=== PATIENT | male | born 1995 | race American Indian/Alaskan Native ===

== ENCOUNTER 2021-05-25 14:50 | Emergency (ER) | payer SELFPAY ==
[2021-05-25] MEDS ORDERED: LIDOCAINE-MPF (1%) 10 MG/1 ML VIAL 5 ML INFILTRATI ONE (15:48)
--- NOTE | 2021-05-25 15:49 | Emergency Department Report ---
ED Male HPI - General Chief complaint: Urogenital-Male Stated complaint: DISCHARGE Time Seen by Provider: 05/25/21 15:33 Source: patient Mode of arrival: Ambulatory Limitations: No Limitations - History of Present Illness Initial comments: 26-year-old male presents to the ER today with complaints of penile discharge. Patient states that his symptoms started 2 days ago. He states that he has had a clear discharge. He denies any associated dysuria, hematuria, testicular pain or swelling, abdominal pain or back pain. He denies any fever or chills. Patient states that he has had the same sexual partner for at least 6 months but they do have unprotected sexual intercourse. He states that he told his partner for symptoms and she is currently getting checked at a different hospital. He reports no other symptoms at this time. MD Complaint: penile discharge - Related Data Previous Rx's Medication Instructions Recorded Last Taken Type DOXYCYCLINE Hyclate [Vibramycin 100 mg PO Q12HR #14 capsule 05/25/21 Unknown Rx CAP] Allergies Allergy/AdvReac Type Severity Reaction Status Date / Time No Known Allergies Allergy Unverified 01/12/21 11:17 ED Review of Systems ROS: Stated complaint: DISCHARGE Other details as noted in HPI Comment: All other systems reviewed and negative Constitutional: denies: chills, fever Eyes: denies: eye pain, eye discharge, vision change ENT: denies: ear pain, throat pain, dental pain, hearing loss, epistaxis, congestion Respiratory: denies: cough, shortness of breath, SOB with exertion, SOB at rest, wheezing Cardiovascular: denies: chest pain, palpitations, dyspnea on exertion, edema, syncope, paroxysmal nocturnal dyspnea Gastrointestinal: denies: abdominal pain, nausea, diarrhea, constipation, hematemesis, melena, hematochezia Genitourinary: discharge. denies: urgency, dysuria, frequency, hematuria, testicular pain, testicular mass Musculoskeletal: denies: back pain, joint swelling, arthralgia Skin: denies: rash, lesions, change in color, change in hair/nails, pruritus Neurological: denies: headache, weakness, numbness, paresthesias, confusion, vertigo Psychiatric: denies: anxiety, depression, auditory hallucinations, visual hallucinations, homicidal thoughts, suicidal thoughts Hematological/Lymphatic: denies: easy bleeding, easy bruising, swollen glands ED Past Medical Hx - Medications Home Medications: Home Medications Medication Instructions Recorded Confirmed Last Taken Type DOXYCYCLINE Hyclate [Vibramycin 100 mg PO Q12HR #14 capsule 05/25/21 Unknown Rx CAP] ED Physical Exam - General Limitations: No Limitations General appearance: alert, in no apparent distress - Head Head exam: Present: atraumatic, normocephalic, normal inspection - Eye Eye exam: Present: normal appearance, PERRL, EOMI Pupils: Present: normal accommodation - ENT ENT exam: Present: normal exam, mucous membranes moist, TM's normal bilaterally - Neck Neck exam: Present: normal inspection, full ROM - Respiratory Respiratory exam: Present: normal lung sounds bilaterally. Absent: respiratory distress, wheezes, rales, rhonchi - Cardiovascular Cardiovascular Exam: Present: regular rate, normal rhythm, normal heart sounds - Back Exam Back exam: Present: normal inspection, full ROM - Neurological Exam Neurological exam: Present: alert, oriented X3, CN II-XII intact, normal gait - Psychiatric Psychiatric exam: Present: normal affect, normal mood - Skin Skin exam: Present: intact ED Course Vital Signs 05/25/21 14:52 Temperature 98.6 F Pulse Rate 66 Respiratory 18 Rate Blood Pressure 125/68 [Right] O2 Sat by Pulse 98 Oximetry ED Medical Decision Making - Medical Decision Making UA reviewed and it is positive for 182 WBCs, small leukocytes, and WBC clumps. It could be related to STD such as gonorrhea chlamydia more so than a true UTI. Patient was treated prophylactically today with Rocephin for gonorrhea and he will be sent home with doxycycline to cover chlamydia. Urine culture pending, and will review culture results to see if there is any changes needed to be made to patient's antibiotics or if any additional antibiotics need to be sent in for patient based on his results. Discussed treatment plan with patient. Patient has no abdominal pain, back pain, fever, chills, any testicular issues. Is not toxic or ill-appearing and not in any significant distress. Patient expressed understanding and agree with plan. Patient stable at time of discharge. Critical care attestation.: If time is entered above; I have spent that time in minutes in the direct care of this critically ill patient, excluding procedure time. ED Disposition Clinical Impression: Penile discharge, Concern about STD in male without diagnosis Disposition: HOME / SELF CARE / HOMELESS Is pt being admited?: No Does the pt Need Aspirin: No Condition: Stable Instructions: Urethritis, Adult, Safe Sex Additional Instructions: You were treated prophylactically for possible gonorrhea with an IM injection of Rocephin. The doxycycline that is prescribed to you today, you need to take as prescribed to completion. This is prophylactic treatment for possible gonorrhea. I recommend no sexual intercourse for at least 7 days. Your partner should also be treated prior to engaging again in sexual intercourse. It Is important that you practice safe sex. Follow-up with your PCP. Return to the ER if your symptoms changes or worsens in any way. Prescriptions: DOXYCYCLINE Hyclate [Vibramycin CAP] 100 mg PO Q12HR #14 capsule Referrals: [facility] [Provider Group] - 3-5 Days Time of Disposition: 16:02
[2021-05-25 16:29] LABS: Bilirubin,Urine NEG (Negative); Blood,Urine NEG (Negative); Color,Urine Yellow (Yellow); Mucus,Urine 1+ /HPF; Protein,Urine <15 mg/dL mg/dL (Negative); Urobilinogen,Urine < 2.0 mg/dL (<2.0)
[2021-05-25 16:42] LABS: WBC,Urine > 182.0 /HPF (0.0-6.0)
[2021-05-25 16:59] VITALS: BP 131/86
== END 2021-05-25 16:55 | disposition home or self-care (01) ==
LOC: ED 14:50
DX: R36.9 Urethral discharge, unspecified (principal); Z20.2 Contact with and (suspected) exposure to infections with a predominantly sexual mode of transmission; Z79.899 Other long term (current) drug therapy
CPT/HCPCS: 81001; 87086; 99283; J0696

== ENCOUNTER 2021-08-24 06:52 | Emergency (ER) | payer SELFPAY ==
--- NOTE | 2021-08-24 07:48 | Emergency Department Report ---
ED GI Bleed HPI - General Chief complaint: GI Bleed Stated complaint: BLOOD IN STOOL Time Seen by Provider: 08/24/21 07:47 Source: patient Mode of arrival: Ambulatory Limitations: No Limitations - History of Present Illness Initial comments: Patient presents with bright red blood per rectum. This started today. He had one bowel movement with bloody stool. He did not have abdominal pain or rectal pain associated with this. There is no history of recent travel or trauma. He is not bleeding from other sites. He is not anticoagulated. There is no family history of bleeding disorder. Patient states that he did have an episode of bright red blood per rectum years ago. That resolved spontaneously and he did not seek medical attention. He decided to come in this time to be evaluated. - Related Data Previous Rx's Medication Instructions Recorded Last Taken Type Pantoprazole [Protonix TAB] 20 mg PO QDAY #30 tablet. 08/24/21 Unknown Rx Sucralfate [Carafate] 1 gm PO ACHS #120 tablet 08/24/21 Unknown Rx Allergies Allergy/AdvReac Type Severity Reaction Status Date / Time No Known Allergies Allergy Unverified 01/12/21 11:17 ED Review of Systems ROS: Stated complaint: BLOOD IN STOOL Other details as noted in HPI Comment: All other systems reviewed and negative Constitutional: denies: fever Eyes: denies: vision change ENT: denies: epistaxis Respiratory: other (No hemoptysis) Cardiovascular: denies: chest pain Endocrine: denies: unexplained weight loss Gastrointestinal: as per HPI Genitourinary: denies: hematuria Musculoskeletal: denies: back pain Skin: denies: rash Neurological: denies: headache Hematological/Lymphatic: denies: easy bruising ED Past Medical Hx - Past Medical History Additional medical history: Chronic abdominal pain - Surgical History Past Surgical History?: No - Family History Family history: no significant, other (Negative for bleeding disorder) - Medications Home Medications: Home Medications Medication Instructions Recorded Confirmed Last Taken Type Pantoprazole [Protonix TAB] 20 mg PO QDAY #30 tablet. 08/24/21 Unknown Rx Sucralfate [Carafate] 1 gm PO ACHS #120 tablet 08/24/21 Unknown Rx ED Physical Exam - General Limitations: No Limitations, Other (Pulse ox noted and normal) General appearance: alert, in no apparent distress - Head Head exam: Present: atraumatic, normocephalic - Eye Eye exam: Present: normal appearance, EOMI - ENT ENT exam: Present: normal orophraynx, normal external ear exam - Neck Neck exam: Present: normal inspection. Absent: meningismus - Respiratory Respiratory exam: Present: normal lung sounds bilaterally. Absent: respiratory distress - Cardiovascular Cardiovascular Exam: Present: regular rate, normal rhythm - GI/Abdominal GI/Abdominal exam: Present: soft. Absent: distended, tenderness - Rectal Rectal exam: Present: other (No obvious hemorrhoid. Patient declined a ESTELLE.) - Extremities Exam Extremities exam: Present: normal capillary refill - Back Exam Back exam: Absent: CVA tenderness (R), CVA tenderness (L) - Neurological Exam Neurological exam: Present: alert, oriented X3, CN II-XII intact, normal gait. Absent: motor sensory deficit - Psychiatric Psychiatric exam: Present: normal affect, normal mood - Skin Skin exam: Present: warm, dry ED Course Vital Signs 08/24/21 07:33 Temperature 98.7 F Pulse Rate 61 Respiratory 16 Rate Blood Pressure 127/88 O2 Sat by Pulse 99 Oximetry - Reevaluation(s) Reevaluation #1: 08/24/21 07:48 Labs were ordered. Old records noted. Reevaluation #2: 08/24/21 09:06 Labs were noted and the patient was discharged ED Medical Decision Making - Lab Data Result diagrams: 08/24/21 07:54 08/24/21 07:54 - Medical Decision Making Patient presents with bright red blood per rectum. There is no evidence of hemorrhoid. He has no abdominal tenderness or pain that would suggest bleeding from a diverticular source. Patient does not have any evidence of coagulopathy. He is not bleeding from other sites. There is no family history of coagulopathy. He is not anemic. He does not have a significantly elevated BUN. I do not believe this is a brisk upper GI bleed. I believe outpatient colonoscopy would be the next appropriate step. He has no abdominal tenderness that would warrant CT evaluation. He was referred to GI regional controller. Critical care attestation.: If time is entered above; I have spent that time in minutes in the direct care of this critically ill patient, excluding procedure time. ED Disposition Clinical Impression: Bright red blood per rectum, Chronic abdominal pain Disposition: HOME / SELF CARE / HOMELESS Is pt being admited?: No Condition: Stable Instructions: Gastrointestinal Bleeding, Abdominal Pain, Adult, [id number] Additional Instructions: Have a bland diet. Drink plenty water. Avoid aspirin and ibuprofen until released by your teradata developer. Follow-up with your regular doctor or the referral physicians for recheck. Return for problems. Prescriptions: Sucralfate [Carafate] 1 gm PO ACHS #120 tablet Pantoprazole [Protonix TAB] 20 mg PO QDAY #30 tablet.dr Referrals: PRIMARY [facility]EM[facility] [Referring] - 3-5 Days COLBY STARR MD [Staff Physician] - 3-5 Days MAHI KAYE MD [Staff Physician] - 3-5 Days Forms: Accompanied Note
[2021-08-24 08:05] LABS: Hematocrit 41.1 % (35.5-45.6); Hemoglobin 13.1 gm/dl (11.8-15.2); Mean Corpuscular HGB Conc 32 % (32-34); Mean Corpuscular Volume 91 fl (84-94); Platelet Count 139 K/mm3 (140-440); Red Cell Distribution Width 13.8 % (13.2-15.2)
[2021-08-24 09:00] LABS: BUN/Creatinine Ratio 18
[2021-08-24 09:02] LABS: Blood Urea Nitrogen 19 mg/dL (9-20); Calcium 9.2 mg/dL (8.4-10.2); Hemolysis Index 7
[2021-08-24 09:41] VITALS: BP 118/55
== END 2021-08-24 09:44 | disposition home or self-care (01) ==
LOC: ED 06:52
DX: K62.5 Hemorrhage of anus and rectum (principal); R10.84 Generalized abdominal pain
CPT/HCPCS: 36415; 80048; 85027; 99283

== ENCOUNTER 2022-02-23 03:52 | Emergency (ER) | payer SELFPAY ==
[2022-02-23 08:17] VITALS: BP 136/88
[2022-02-23] MEDS ORDERED: AZITHROMYCIN 250 MG TAB PO ONE (08:30)
[2022-02-23] MEDS ORDERED: LIDOCAINE-MPF (1%) 10 MG/1 ML VIAL 5 ML INFILTRATI ONE (08:30)
--- NOTE | 2022-02-23 09:10 | Emergency Department Report ---
ED Male HPI - General Chief complaint: Urogenital-Male Stated complaint: DISCHARGE Time Seen by Provider: 02/23/22 08:30 Source: patient Mode of arrival: Ambulatory Limitations: No Limitations - History of Present Illness Initial comments: 26-year-old black male with no past medical history presents to the emergency department for evaluation of 1 day history of penile discharge. He states that he noticed yellowish discharge in his underwear when he woke up yesterday and has had intermittently since then. He denies fever, abdominal pain, nausea, vomiting. He states that he has been having unprotected sex with a new partner. MD Complaint: penile discharge -: days(s) (1) Severity scale (0 -10): 0 new sexual partner discharge. denies: swelling, mass, rash, urinary retention, blood in urine, dysuria, fever, nausea/vomiting, incontinence - Related Data Sexually active: Yes Previous Rx's Medication Instructions Recorded Last Taken Type Pantoprazole [Protonix TAB] 20 mg PO QDAY #30 tablet. 08/24/21 Unknown Rx Sucralfate [Carafate] 1 gm PO ACHS #120 tablet 08/24/21 Unknown Rx Allergies Allergy/AdvReac Type Severity Reaction Status Date / Time No Known Allergies Allergy Unverified 01/12/21 11:17 ED Review of Systems ROS: Stated complaint: DISCHARGE Other details as noted in HPI Comment: All other systems reviewed and negative Constitutional: denies: chills, fever, malaise, weakness Respiratory: denies: shortness of breath Cardiovascular: denies: chest pain, palpitations Gastrointestinal: denies: abdominal pain, nausea, vomiting Genitourinary: discharge. denies: urgency, dysuria, frequency, hematuria, testicular pain, testicular mass Musculoskeletal: denies: back pain Neurological: denies: headache, weakness ED Past Medical Hx - Past Medical History Additional medical history: Chronic abdominal pain - Medications Home Medications: Home Medications Medication Instructions Recorded Confirmed Last Taken Type Pantoprazole [Protonix TAB] 20 mg PO QDAY #30 tablet. 08/24/21 Unknown Rx Sucralfate [Carafate] 1 gm PO ACHS #120 tablet 08/24/21 Unknown Rx ED Physical Exam - General Limitations: No Limitations General appearance: alert, in no apparent distress - Head Head exam: Present: atraumatic, normocephalic - Eye Eye exam: Present: normal appearance. Absent: conjunctival injection - Neck Neck exam: Present: normal inspection, full ROM. Absent: tenderness - Respiratory Respiratory exam: Present: normal lung sounds bilaterally. Absent: respiratory distress, wheezes, rales, rhonchi, stridor, chest wall tenderness - Cardiovascular Cardiovascular Exam: Present: bradycardia, normal heart sounds - GI/Abdominal GI/Abdominal exam: Present: soft, normal bowel sounds. Absent: distended, tenderness, guarding, rebound, rigid - exam: Present: urethral discharge External exam: Present: normal external exam - Extremities Exam Extremities exam: Present: normal inspection, normal capillary refill - Back Exam Back exam: Present: normal inspection. Absent: CVA tenderness (R), CVA tenderness (L) - Neurological Exam Neurological exam: Present: alert, oriented X3, normal gait - Psychiatric Psychiatric exam: Present: normal affect, normal mood - Skin Skin exam: Present: warm, dry, intact, normal color ED Course Vital Signs 02/23/22 02/23/22 04:09 08:16 Temperature 98.5 F 97.9 F Pulse Rate 51 L 60 Respiratory 18 14 Rate Blood Pressure 124/74 Blood Pressure 136/88 [Left] O2 Sat by Pulse 98 100 Oximetry ED Medical Decision Making - Medical Decision Making 26-year-old black male with no past medical history presents to the emergency department for evaluation of 1 day history of penile discharge. He states that he noticed yellowish discharge in his underwear when he woke up yesterday and has had intermittently since then. He denies fever, abdominal pain, nausea, vomiting. He states that he has been having unprotected sex with a new partner. Patient treated empirically with Rocephin 500 mg IV and a Zithromax 1000 mg p.o. x1. Patient declined 7-day course of doxycycline stating that he does not like to take pills and will not take a 7-day course. He is advised to practice safe sex, notify partner so that they can be evaluated and treated, follow-up with primary care provider if no improvement or worsening symptoms, or return to the emergency department as needed. He verbalizes understanding of and agreement with plan of care. Critical care attestation.: If time is entered above; I have spent that time in minutes in the direct care of this critically ill patient, excluding procedure time. ED Disposition Clinical Impression: Urethritis Disposition: 01 HOME / SELF CARE / HOMELESS Is pt being admited?: No Does the pt Need Aspirin: No Condition: Stable Instructions: Urethritis, Adult Additional Instructions: Practice safe sex. Follow-up with primary care provider if no improvement or worsening symptoms. Return to the emergency department as needed. Referrals: COLBY STARR MD [Primary Care Provider] - 3-5 Days Forms: STI Treatment and Prevention, Work/School Release Form(ED) Time of Disposition: 09:10
== END 2022-02-23 09:11 | disposition home or self-care (01) ==
LOC: ED 03:52
DX: N34.2 Other urethritis (principal)
CPT/HCPCS: 96372; 99282; J0696; J3490